=== PATIENT | female | born 1980 | race Caucasian/White ===

== ENCOUNTER 2025-03-07 23:31 | Emergency (ER) | payer OTHER ==
[~2025-03-07] VITALS: Ht 167.6 cm; Wt 74.1 kg
[~2025-03-07 23:31] MED LIST: IBUP-1492 PO; PREN1TAB80 PO
[2025-03-07 23:48] VITALS: TEMP 98.1
[2025-03-08] MEDS: KETOROLAC TROMETHAMINE 30 MG/ML VIAL IVP ONE (00:39)
[2025-03-08 00:56] LABS: PLATELET COUNT (AUTO) 296 K/uL (150-450); RED BLOOD CELL COUNT(AUTO) 4.24 MIL/uL (4.00-5.20); RED CELL DISTRIBUTION WIDTH 13.2 % (11.5-14.5); WHITE BLOOD COUNT (AUTO) 9.5 K/uL (4.5-11.0)
[2025-03-08 00:58] LABS: CALCIUM, TOTAL 8.7 mg/dL (8.8-10.5); CREATININE 0.72 mg/dL (0.60-1.30); GLOMERULAR FILTR. RATE CALC > 60 mL/min (>60); GLUCOSE,RANDOM 93 mg/dL (70-110); SODIUM SERUM 137 mmol/L (136-145); UREA NITROGEN, BLOOD 6 mg/dL (7-18)
[2025-03-08 01:02] LABS: ASPARTATE AMINOTRANSFERASE 23 U/L (15-37); TOTAL PROTEIN, SERUM 7.1 g/dL (6.4-8.2)
[2025-03-08] MEDS ORDERED: IOHEXOL 300 MG/ML 100 ML VIAL ONE (01:12)
[2025-03-08 01:56] LABS: APPEARANCE,URINE CLEAR (CLEAR); GLUCOSE, URINE (UA) NEGATIVE (NEGATIVE); LEUKOCYTE ESTERASE ,URINE NEGATIVE (NEGATIVE); NITRATE,URINE NEGATIVE (NEGATIVE); OCCULT BLOOD,URINE NEGATIVE (NEGATIVE); SPECIFIC GRAVITIY, URINE 1.019 (1.003-1.030)
[2025-03-08] MEDS: FentaNYL CITRATE PF 100 MCG/2 ML VIAL IVP ONE ×2 (03:58→06:00)
[2025-03-08] MEDS ORDERED: METR500 PO (04:19)
[2025-03-08] MEDS ORDERED: LEVO-72 PO (04:19)
[2025-03-08] MEDS ORDERED: HYDR-4062 PO (04:19)
[2025-03-08] MEDS: MetroNIDAZOLE 500 MG/NACL 100 ML IV ONE (04:24)
[2025-03-08] MEDS: LEVOFLOXACIN 500 MG/D5% WATER 100 ML IV ONE (05:16)
[2025-03-08 06:00] VITALS: BP 132/98; PULSE 66; RESP 15; O2SAT 98
== END 2025-03-08 06:43 | disposition home or self-care (01) ==
LOC: EMS 23:46
DX: K57.32 Diverticulitis of large intestine without perforation or abscess without bleeding (principal); I10 Essential (primary) hypertension; F32.A Depression, unspecified; Z90.89 Acquired absence of other organs; Z79.899 Other long term (current) drug therapy
CPT/HCPCS: 99285; 80053; 81003; 84703; 85025; 36415; 74177; 96365; 96375; 96376; 96368; J1885; J3010; J1956; J3490; Q9967